=== PATIENT | male | born 1995 | race Caucasian/White ===

== ENCOUNTER 2018-03-30 12:53 | Day surgery (SDC) | payer SELFPAY ==
[2018-03-16 14:02] VITALS: BMI 29.5
[~2018-03-30 12:53] MED LIST: BACITRACIN 15 GM TUBE TOPICAL OINTMENT ONE; BUPIVACAINE HCL/PF 0.25% (2.5MG/ML) 10 ML VIAL IJ ONE; BUPIVACAINE HCL/PF 2.5 MG/ML - 30 ML VIAL IJ ONE; DESFLURANE GAS 240 ML BOTTLE IH ONE; DEXAMETHASONE SOD PHOSPHATE 4 MG/1 ML VIAL ONE; EPINEPHrine/PF 1 MG/1 ML (1:1,000) AMPULE ONE; GLYCOPYRROLATE 0.2 MG/1 ML VIAL ONE; HEPARIN NA (PORCINE) 5,000 UNITS/ML 1ML VIAL ONE; LIDOCAINE HCL 1% PRESERVATIVE FREE - 30ML VIAL ONE; LIDOCAINE HCL 2% 100 MG/5 ML DISP.SYRIN ONE; LIDOCAINE HCL 2% JELLY (5 ML/TUBE) ONE; MIDAZOLAM HCL 2 MG/2 ML SINGLE DOSE VIAL ONE; NEOSTIGMINE METHYLSULFATE 0.5 MG/ML - 10 ML MDV ONE; ONDANSETRON 4 MG/2 ML VIAL IVPB PRN; ONDANSETRON 4 MG/2 ML VIAL IVPUSH PRN; PROPOFOL 20 ML ONE; ROCURONIUM BROMIDE 50 MG/5 ML VIAL ONE; ceFAZolin SODIUM 1 GM VIAL ONE; fentaNYL CITRATE 250 MCG/5 ML VIAL ONE; oxyCODONE HCL 5 MG TABLET PO PRN
--- NOTE | 2018-03-30 12:57 | OP ---
Operative Note - Note: Operative Date: 03/30/18 Pre-Operative Diagnosis: abdominal deformity Operation: abdominoplasty with accessory breast liposuction Post-Operative Diagnosis: Same as Pre-op Surgeon: Jorge Bone Anesthesia: General Operative Report Dictated: Yes
[2018-03-30] MEDS ORDERED: LACTATED RINGERS SOLUTION 1,000 ML IV SCH (13:00)
[2018-03-30] MEDS ORDERED: oxyCODONE HCL 5 MG TABLET ONE (13:34)
[2018-03-30] MEDS: morphine CARPU-JECT 10 MG/1 ML DISP.SYRIN IVPUSH PRN ×2 (15:09→21:19)
[2018-03-30] MEDS: oxyCODONE HCL 5 MG TABLET PO PRN (22:52)
[2018-03-31] MEDS: morphine CARPU-JECT 10 MG/1 ML DISP.SYRIN IVPUSH PRN (01:00)
[2018-03-31] MEDS: oxyCODONE HCL 5 MG TABLET PO PRN ×2 (04:56→08:30)
[2018-03-31 06:43] VITALS: BP 103/63; PULSE 82; TEMP 98.2
[2018-03-31] MEDS: HEPARIN NA (PORCINE) 5,000 UNITS/ML 1ML VIAL SQ SCH ×2 (06:43→08:30)
--- NOTE | 2018-03-31 07:37 | PN ---
Progress Note (short form) - Note Progress Note: POD 1 All tissues viable No hematoma ambulating HAYLEY output thin and moderate Pain well controlled ok for discharge
[2018-03-31] MEDS ORDERED: morphine SULFATE 4 MG/ML VIAL IVPUSH PRN (07:49)
--- NOTE | 2018-03-31 07:49 | OP ---
DATE OF OPERATION: 03/30/2018 TITLE OF PROCEDURE: Abdominoplasty with liposuction to bilateral accessory breast tissue. ATTENDING SURGEON: Jorge Bone MD MANAGER RETIREMENT: CAMRON Costa ANESTHESIA: General endotracheal. The patient is counseled in the preoperative holding area of risks, benefits, and alternatives to the procedure. He understands this as well as the limitations, the limitation of the amount of liposuction able to be performed at the time of the abdominoplasty. He understands and agrees to proceed. Sequential compression stockings and HECTOR hose were applied. Patient is given 5000 units of subcutaneous heparin preoperatively. Patient is brought to the operating room and placed in supine position. All positioning aids are used. A Lopez catheter is placed. Patient is given 2 g of Ancef preoperatively. He is prepped and draped in standard surgical fashion. Timeout is called. Patient, procedure, sites, and sides are verified. At this point, incision is made at the inferior resection pattern. The blood vessels are suture ligated, and the abdominal fascia is exposed. Dissection is then carried along the abdominal fascia, ligating the perforating blood vessels as they are approached until the level of the umbilicus. The umbilicus is then circumcised and developed on a fibrofatty stalk down to the level of the abdominal wall fascia. A midline tunnel is then dissected, leaving perforated blood vessels on either side of the rectus fascia, preserving this more medial than an ordinary abdominoplasty. The dissection is then continued into the accessory breast tissue for direct defatting and releasing of the tissues. This is performed. However, the subcostal perforating blood vessels are preserved. At this point, the hemostasis then meticulously achieved. The patient is brought to a seated upright position where skin is able to be translocated which is effacing the folds of the accessory breast tissue. With the skin tailor tacked, some of the excess skin and fat is excised, skin tailor tacked, and the accessory breast tissue is then infiltrated with a total of 1 L of tumescent solution. Tumescent solution is a mixture of a liter of normal saline and 1 ampule of 1:1000 epinephrine. Next, 40 mL of 0.25% Marcaine plain is injected into the abdominal wall fascia as well as in the subcostal planes. The umbilicus is then marked and translocated in the midline with an oval-shape pattern. It is inset into an oval translocation incision with a series of interrupted, buried, deep dermal 3-0 Monocryl suture, followed by a running 4-0 nylon suture. After waiting 25 minutes for hemostatic effect of the tumescent solution, liposuction is performed in the SAFE technique with pre- and post-tunneling with a 4-mm basket-tip cannula. Once the tissues are fully released, liposuction is then performed. The lipoaspirates are as follows: 225 mL from the left accessory breast and 175 mL from the right accessory breast, and then, bilateral flank liposuction is performed to a lesser degree as was discussed with the patient preoperatively, 100 mL per side. Endpoint was smooth, even contour. There seems to be full flattening of the accessory breast tissues bilaterally. There is good distal perfusion of the abdominoplasty flap. Copious irrigation is then performed with hemostasis. The size 10 flat HAYLEY drains were brought out through the abdominal incision, and they are secured with interrupted 2-0 silk drain sutures. The abdominoplasty flap is then closed with a series of interrupted, deep, superficial fascial system 2-0 Vicryl suture. Several 2-0 Vicryl sutures are used to tack the inferior skin incision to the abdominal wall fascia to prevent superior translocation of the scar. The remainder of the closure is then performed with a series of interrupted, buried, deep dermal 3-0 Monocryl suture, followed by a running 3-0 V-Loc Monocryl suture, followed by several 5-0 nylon sutures. All tissues are pink and viable with no evidence of any vascular compromise. Dressings were applied with Steri-Strips, 4-x-4 gauze, ABD gauze, and compressive garment on each the chest and abdomen. Patient is awoken from anesthesia, having tolerated the procedure well, transferred to Recovery without complication. It should be noted the Lopez catheter is removed at the end of the procedure. Nestor [id number]
--- NOTE | 2018-04-03 10:18 | PN ---
Progress Note (short form) - Note Progress Note: 23M c/o pain pod 4 s/p abdominoplasty. Pt states that pain is pleuritic, and worsens with leaning forward, and movement as well. Pt describes h/o viral URI 6 weeks ago. Pt has had low grade fevers, generalized fatigue, shortness of breath. PE and PTX have been ruled out. Pt does not have any clinical signs or symptoms consistent with pneumonia. Consider 12 lead EKG to evaluate for pericarditis. Recommend starting ibuprofen to treat pericarditis symptoms. Discussed with Dr. Bone.
[2018-04-03] MEDS ORDERED: IBUPROFEN 400 MG TABLET (FP) PO SCH (13:15)
[2018-04-03] MEDS ORDERED: oxyCODONE HCL 5 MG TABLET PO PRN ×2 (13:20→13:21)
[2018-04-03] MEDS ORDERED: ACETAMINOPHEN 325 MG TABLET (FP) PO SCH (13:30)
== END 2018-03-31 11:30 | disposition home or self-care (01) ==
LOC: FASU 12:53 → FM/S 12:53 → FASU 03-31 11:30
PROVIDERS: ATTEND Plastic Surgery
PROC: 0J080ZZ Alteration of Abdomen Subcutaneous Tissue and Fascia, Open Approach (ICD-10-PCS; principal; 2018-03-30 08:33)
PROC: 0H0V3ZZ Alteration of Bilateral Breast, Percutaneous Approach (ICD-10-PCS; 2018-03-30 08:33)
DX: Z41.1 Encounter for cosmetic surgery (principal)
CPT/HCPCS: 94760; J1644

== ENCOUNTER 2018-04-02 11:27 | Observation (INO) | payer BC ==
[2018-04-02] MEDS ORDERED: SODIUM CHLORIDE 1,000 ML IV STA ×2 (12:07→12:52)
[2018-04-02 12:30] LABS: BASO % 0.8 % (0-2.0); EOS % 0.7 % (0-4.5); HEMATOCRIT 38.3 % (35.4-49); HEMOGLOBIN 13.1 GM/dl (11.7-16.9); LYMPH % 12.6 % (8-40); MCH 29.6 pg (25.7-33.7); MCHC 34.3 g/dl (32.0-35.9); MEAN CELL VOLUME 86.3 fl (80-96); MEAN PLT VOLUME 8.5 fl (7.5-11.1); MONO % 11.5 % (3.8-10.2); NEUT % 74.4 % (42.8-82.8); PLATELET COUNT 200 K/MM3 (134-434); RBC 4.44 M/mm3 (4.00-5.60)
--- NOTE | 2018-04-02 12:30 | PDOC ---
History of Present Illness - General Chief Complaint: Shortness of Breath Stated Complaint: SOB Time Seen by Provider: 04/02/18 11:52 History Source: Patient Exam Limitations: No Limitations - History of Present Illness Initial Comments: 04/02/18 12:25 Pt is a 23yo M with no significant PMH s/p abdominoplasty 3 days ago performed by Dr. Bone presenting to ED with complaints of R sided chest and back pain that started at 5pm yesterday with SOB. Pt states that he woke up and had sudden onset pain and SOB. Pain is worsened with deep inspiration. He went to [facility] and had workup as well as CT study for PE at around 1am today. Per the report, the study was limited and PE could not definitively be ruled out. Pt went to surgeon's office and was told to come to ED for CT and DVT study. Pt denies cough, hemoptysis, chest pain, palpitaitons, leg swelling, calf tenderness, flank pain, urinary symptoms, new abdominal pain, n/v/d. Pt has not had a bowel movement since Friday but has been passing gas. surgeon: Dr. Nieto PMH: see hpi PSH: see hpi Meds: see med rec Allergies: nkda Social: denies Past History - Past Medical History Allergies/Adverse Reactions: Allergies Allergy/AdvReac Type Severity Reaction Status Date / Time No Known Allergies Allergy Verified 03/16/18 13:51 Home Medications: Ambulatory Orders Cefadroxil 500 mg PO BID 04/02/18 Docusate Sodium [Colace] 100 mg PO DAILY 04/02/18 Oxycodone HCl/Acetaminophen [Percocet 5-325 mg Tablet] 1 - 2 tab PO Q4H Rivaroxaban [Xarelto -] 10 mg PO DAILY 04/02/18 Anemia: No Asthma: No Cancer: No Cardiac Disorders: No CVA: No COPD: No CHF: No Dementia: No Diabetes: No GI Disorders: No Disorders: No HTN: No Hypercholesterolemia: No Liver Disease: No Seizures: No Thyroid Disease: No - Surgical History Abdominal Surgery: Yes (ABDPLASTY) Appendectomy: No Cardiac Surgery: No Cholecystectomy: No Lung Surgery: No Neurologic Surgery: No Orthopedic Surgery: No - Suicide/Smoking/Psychosocial Hx Smoking History: Never smoked Have you smoked in the past 12 months: No If you are a former smoker, when did you quit?: 2016 Hx Alcohol Use: Yes (OCASIONAL) Drug/Substance Use Hx: No Substance Use Type: Alcohol, Marijuana *Physical Exam - Vital Signs Last Vital Signs Temp Pulse Resp BP Pulse Ox 98.8 F 106 H 16 91/46 L 100 04/02/18 11:28 04/02/18 11:28 04/02/18 11:28 04/02/18 11:28 04/02/18 11:28 Moderate Sedation - Procedure Monitoring Vital Signs: Procedure Monitoring Vital Signs Temperature 98.8 F 04/02/18 11:28 Pulse Rate 106 H 04/02/18 11:28 Respiratory Rate 16 04/02/18 11:28 Blood Pressure 91/46 L 04/02/18 11:28 O2 Sat by Pulse Oximetry (%) 100 04/02/18 11:28 ED Treatment Course - LABORATORY CBC & Chemistry Diagram: 04/02/18 12:15 04/02/18 12:15 Medical Decision Making - Medical Decision Making 04/02/18 19:11 Pt is a 23yo M with no significant PMH s/p abdominoplasty 3 days ago performed by Dr. Bone presenting to ED with complaints of R sided chest and back pain that started at 5pm yesterday with SOB. Pt states that he woke up and had sudden onset pain and SOB. Pain is worsened with deep inspiration. He went to [facility] and had workup as well as CT study for PE at around 1am today. Per the report, the study was limited and PE could not definitively be ruled out. Pt went to surgeon's office and was told to come to ED for CT and DVT study. Pt denies cough, hemoptysis, chest pain, palpitaitons, leg swelling, calf tenderness, flank pain, urinary symptoms, new abdominal pain, n/v/d. Pt has not had a bowel movement since Friday but has been passing gas. Vitals: tachycardia (106), bp 91/46, RR 16 100%RA PE: lungs clear, normal heart sounds. abdominal binder in place, surgical scars healing well, no signs of infection. abdominal tenderness, no CVA tenderness. no chest wall tenderness, no pedal edema or calf tenderess or swelling. ddx includes but not limited to: surgical pain, atelectasis, PE, pna although pt is on xarelto, pt is tachycardic, having pleuritic chest pain, recent surgery. Wells score 3pts -6pts Spoke to radiologist, recommended that pt get fluids before radiation again. ( had CT with contrast less than 12h ago). -cbc, cmp (forgot to order trop), coags -ekg -labs wnl orderd CT -IV fluids, percocet. -Dilaudid. repeat vitals: Selected Entries 04/02/18 14:03 Temperature 99.1 F Pulse Rate [ 97 H Left Radial] Blood Pressure 105/61 [Right Arm] O2 Sat by Pulse 98 Oximetry (%) CT limited study due to pt body habitus and inability to lift arms over head. no central embolus but could not visualize periphery. Cannot rule out pe. No pna. R base atelectasis. EKG; NSR, S1Q3T3? spoke to Dr. Nieto agreed to admission to r/o pe. Spoke to hospitalist, recommended 15mg xarelto however pt took 10mg today. Will admit. *DC/Admit/Observation/Transfer Diagnosis at time of Disposition: Chest pain Qualifiers: Chest pain type: chest pain on breathing Qualified Code(s): R07.1 - Chest pain on breathing - Discharge Dispostion Condition at time of disposition: Good Decision to Admit order: Yes - Referrals - Patient Instructions - Post Discharge Activity
[2018-04-02 12:36] LABS: ACTIVATED PTT 28.5 SECONDS (25.2-36.5)
[2018-04-02 12:38] LABS: ALBUMIN 3.3 g/dl (3.4-5.0); ALK PHOS 39 U/L (45-117); ANION GAP 4 MMOL/L (8-16); BILIRUBIN,TOTAL 2.5 mg/dl (0.2-1); BLOOD UREA NITROGEN 11 mg/dl (7-18); CALCIUM 8.1 mg/dl (8.5-10); CHLORIDE 102 mmol/L (98-107); CO2 27 mmol/L (21-32); CREATININE 0.7 mg/dl (0.55-1.3); GLUCOSE,RANDOM 101 mg/dl (74-106); SGOT/AST 22 U/L (15-37); SGPT/ALT 20 U/L (13-61); SODIUM 133 mmol/L (136-145)
[2018-04-02 12:40] LABS: INR 2.07 (0.82-1.09); PROTHROMBIN TIME (PATIENT) 22.9 SEC (10.2-13.0)
[2018-04-02] MEDS ORDERED: HYDROmorphone HCL CARPU-JECT 1 MG/1 ML DISP.SYRIN ONE (13:15)
[2018-04-02] MEDS ORDERED: morphine CARPU-JECT 2 MG/1 ML DISP.SYRIN IVPUSH ONE (13:47)
[2018-04-02] MEDS ORDERED: ONDANSETRON 4 MG/2 ML VIAL IVPB ONE (14:02)
[2018-04-02] MEDS ORDERED: ONDANSETRON 4 MG/2 ML VIAL ONE (14:03)
[2018-04-02] MEDS ORDERED: HYDROmorphone HCL CARPU-JECT 1 MG/1 ML DISP.SYRIN IVPUSH ONE (14:22)
[2018-04-02 17:10] VITALS: BMI 31.2
[2018-04-02] MEDS ORDERED: traMADol HCL 50 MG TABLET PO ONE (18:40)
--- NOTE | 2018-04-02 20:41 | HP ---
CHIEF COMPLAINT: SOB PCP: Dr. Mina Valiente HISTORY OF PRESENT ILLNESS: This is a 23 y/o young man with no significant medical history who is s/p abdominoplasty 3 days ago. Who presents to the ED with SOB and right sided chest pain x started 5pm yesterday.Patient reports increased pain to R- chest and back on deep inspiration. Patient went to [facility] today for same had a CTA- study was limited and a PE could not be ruled out. He went to see Dr. Bone in the office and was advised to come here to r/o PE and DVT. Patient denies fever, chills, dizziness, palpitations, N/V, diarrhea, dysuria. ER course was notable for: (1) CTA- limited study, no large central emboli, inadequate visualization of peripheral pulmonary arteries for emboli. Infiltrate/Atelectasis Right Base. (2) T Max 100.4, P- 106 (3) Recent Travel: None PAST MEDICAL HISTORY: see HPI PAST SURGICAL HISTORY: s/p abdominoplasty Social History: Smoking: None Alcohol: Occasional Drugs: Marijuana Lives with family, employed- Real Estate Family History: Maternal Grandmother: Breast Ca, Lung Ca Allergies No Known Allergies Allergy (Verified 03/16/18 13:51) HOME MEDICATIONS: Home Medications Medication Instructions Recorded Cefadroxil 500 mg PO BID 04/02/18 Docusate Sodium [Colace] 100 mg PO DAILY 04/02/18 Oxycodone HCl/Acetaminophen 1 - 2 tab PO Q4H 04/02/18 [Percocet 5-325 mg Tablet] Rivaroxaban [Xarelto -] 10 mg PO DAILY 04/02/18 REVIEW OF SYSTEMS CONSTITUTIONAL: Absent: fever, chills, diaphoresis, generalized weakness, malaise, loss of appetite, weight change HEENT: Absent: rhinorrhea, nasal congestion, throat pain, throat swelling, difficulty swallowing, mouth swelling, ear pain, eye pain, visual changes CARDIOVASCULAR: chest pain Absent:, syncope, palpitations, irregular heart rate, lightheadedness, peripheral edema RESPIRATORY: cough, shortness of breath Absent: dyspnea with exertion, orthopnea, wheezing, stridor, hemoptysis GASTROINTESTINAL: constipation, Absent: abdominal pain, abdominal distension, nausea, vomiting, diarrhea, melena , hematochezia GENITOURINARY: Absent: dysuria, frequency, urgency, hesitancy, hematuria, flank pain, genital pain MUSCULOSKELETAL: back pain Absent: myalgia, arthralgia, joint swelling, neck pain SKIN: Absent: rash, itching, pallor HEMATOLOGIC/IMMUNOLOGIC: Absent: easy bleeding, easy bruising, lymphadenopathy, frequent infections ENDOCRINE: Absent: unexplained weight gain, unexplained weight loss, heat intolerance, cold intolerance NEUROLOGIC: Absent: headache, focal weakness or paresthesias, dizziness, unsteady gait, seizure, mental status changes, bladder or bowel incontinence PSYCHIATRIC: Absent: anxiety, depression, suicidal or homicidal ideation, hallucinations. PHYSICAL EXAMINATION Vital Signs - 24 hr 04/02/18 04/02/18 04/02/18 11:28 14:03 14:11 Temperature 98.8 F 99.1 F 97.4 F L Pulse Rate 106 H 91 H Pulse Rate [ 97 H Left Radial] Respiratory 16 18 Rate Blood Pressure 91/46 L 117/60 Blood Pressure 105/61 [Right Arm] O2 Sat by Pulse 100 98 99 Oximetry (%) 04/02/18 04/02/18 16:28 18:45 Temperature 98 F 98.4 F Pulse Rate 91 H Pulse Rate [ 86 Left Radial] Respiratory 18 19 Rate Blood Pressure 105/55 L Blood Pressure 113/61 [Right Arm] O2 Sat by Pulse 96 98 Oximetry (%) GENERAL: Awake, alert, and fully oriented, in moderate distress. HEAD: Normal with no signs of trauma. EYES: Pupils equal, round and reactive to light, extraocular movements intact, sclera anicteric, conjunctiva clear. No lid lag. EARS, NOSE, THROAT: Ears normal, nares patent, oropharynx clear without exudates. Dry mucous membranes. NECK: Normal range of motion, supple without lymphadenopathy, JVD, or masses. LUNGS: Breath sounds diminished to right base. No wheezes, and no crackles. No accessory muscle use. HEART: Regular rate and rhythm, normal S1 and S2 without murmur, rub or gallop. ABDOMEN: Slight tenderness to surgical site intact with steri, abdominal binder , drain with sanguineous drainage. soft, not distended, hypoactive bowel sounds , no guarding, no rebound, no masses. No hepatomegaly or splenomegaly. MUSCULOSKELETAL: Normal range of motion at all joints. No bony deformities or tenderness. No CVA tenderness. UPPER EXTREMITIES: 2+ pulses, warm, well-perfused. No cyanosis. No clubbing. No peripheral edema. LOWER EXTREMITIES: 2+ pulses, warm, well-perfused. No calf tenderness. No peripheral edema. NEUROLOGICAL: Cranial nerves II-XII intact. Normal speech. Gait not observed. PSYCHIATRIC: Cooperative. Good eye contact. Appropriate mood and affect. SKIN: Warm, dry, normal turgor, no rashes or lesions noted, normal capillary refill. Laboratory Results - last 24 hr 04/02/18 04/02/18 04/02/18 12:15 12:15 12:15 WBC 8.0 RBC 4.44 Hgb 13.1 Hct 38.3 MCV 86.3 MCH 29.6 MCHC 34.3 RDW 13.0 Plt Count 200 MPV 8.5 Absolute Neuts (auto) 5.9 Neutrophils % 74.4 Lymphocytes % 12.6 Monocytes % 11.5 H Eosinophils % 0.7 Basophils % 0.8 PT with INR 22.9 H INR 2.07 H PTT (Actin FS) 28.5 Sodium 133 L Potassium 4.0 Chloride 102 Carbon Dioxide 27 Anion Gap 4 L BUN 11 Creatinine 0.7 Creat Clearance w eGFR > 60 Random Glucose 101 Calcium 8.1 L Total Bilirubin 2.5 H AST 22 ALT 20 Alkaline Phosphatase 39 L Total Protein 6.0 L Albumin 3.3 L Imaging: CTA- severely limited study. No large central emboli seen. Inadequate visualization of the peripheral pulmonary arteries for emboli. Infiltrate/ atelectasis right base. Hepatosplenomegaly ASSESSMENT/PLAN: This is a 23 y/o young man with no significant medical history s/p abdominoplasty. Placed in Tele Observation for Atypical Chest Pain, SOB, Pneumonia for further evaluation of their emergent condition. Plan: 1. Cardiovascular Atypical Chest Pain Likely secondary to PNA vs PE vs ACS Continue cardiac monitoring Serial Enzymes EKG- NSR no ST or TWI CTA- see above Consider Cardiology consult if condition worsens 2. Pulmonary SOB r/o PE Pneumonia Wells Score 3-6 CTA- see above VQ Scan r/o PE Continue Xarelto O2 Appreciate Pulmonology consult Blood Cultures, Rapid Flu, Lactic Acid- ordered UA, Urine Culture-pending Will treat empirically for CAP Ceftriaxone, Azithromycin T Max 100.4 Monitor CBC, BMP Monitor vitals 3. GI s/p Abdominoplasty Wound/drain checks Percocet prn f/u with Surgeon outpatient FEN NS@75ml/hr Replete lytes prn Regular Diet DVT ppx OOB Continue Xarelto Code Status: Full Code Dispo: Observation Problem List - Problem (1) SOB (shortness of breath) Code(s): R06.02 - SHORTNESS OF BREATH Visit type - Emergency Visit Emergency Visit: Yes ED Registration Date: 04/02/18 Care time: The patient presented to the Emergency Department on the above date and was hospitalized for further evaluation of their emergent condition. - New Patient This patient is new to me today: Yes Date on this admission: 04/02/18 - Critical Care Critical Care patient: No
[2018-04-02] MEDS ORDERED: CEFTRIAXONE 1 G/50 ML PREMIX 50 ML IVPB ONE (21:06)
[2018-04-02] MEDS ORDERED: AZITHROMYCIN IVPB 500 MG/250 ML BAG IVPB ONE (21:07)
[2018-04-02] MEDS: ACETAMINOPHEN 325 MG TABLET (FP) PO PRN (21:13)
[2018-04-02] MEDS: DOCUSATE SODIUM 100 MG CAPSULE (FP) PO SCH (22:33)
[2018-04-02] MEDS: SODIUM CHLORIDE 1,000 ML IV SCH (22:33)
[2018-04-02] MEDS: oxyCODONE HCL 5 MG TABLET PO PRN (22:34)
[2018-04-02 23:01] LABS: PH,URINE 5.5 (4.5-8); URINE APPEARANCE Clear; URINE BILIRUBIN Negative (NEGATIVE); URINE COLOR Yellow; URINE GLUCOSE (UA) Negative (NEGATIVE); URINE KETONE Negative (NEGATIVE); URINE LEUK ESTERASE Negative (NEGATIVE); URINE NITRITE Negative (NEGATIVE); URINE PROTEIN Negative (NEGATIVE); URINE UROBILINOGEN 0.2 (0.2-1.0)
[2018-04-03] MEDS: ACETAMINOPHEN 325 MG TABLET (FP) PO PRN ×2 (02:20→09:50)
[2018-04-03] MEDS ORDERED: HYDROmorphone HCL CARPU-JECT 1 MG/1 ML DISP.SYRIN IVPUSH ONE (03:07)
[2018-04-03 07:30] LABS: BASO % 0.3 % (0-2.0); EOS % 2.6 % (0-4.5); HEMATOCRIT 35.3 % (35.4-49); LYMPH % 26.1 % (8-40); MCH 29.5 pg (25.7-33.7); MEAN CELL VOLUME 86.9 fl (80-96); MEAN PLT VOLUME 8.4 fl (7.5-11.1); MONO % 13.5 % (3.8-10.2); NEUT % 57.5 % (42.8-82.8); PLATELET COUNT 191 K/MM3 (134-434); RBC 4.06 M/mm3 (4.00-5.60); RDW 13.1 % (11.9-15.9); WHITE BLOOD COUNT 6.7 K/mm3 (4.0-10.8)
--- NOTE | 2018-04-03 08:17 | PN ---
Physical Exam: SUBJECTIVE: Patient seen and examined. Briefly, this is a 23-year-old male with no significant PMH POD # 4 s/p abdominoplasty (with Dr. Bone) who presented to the ED yesterday with right-sided chest and back pain with associated shortness of breath. Pain is pleuritic. He initially presented to [facility] and had a CTA that was limited/not definitive. CTA was repeated yesterday and again reported as limited, but negative for central PE. There is infiltrate/atelectasis at the right base. The patient was started on Ceftriaxone /Azithromycin for PNA and admitted. Today, he describes uncontrolled abdominal pain limiting his ability to ambulate. He denies fevers/chills and SOB. Vital sig OBJECTIVE: Vital Signs Period Temp Pulse Resp BP Sys/Johnson Pulse Ox Last 24 Hr 97.4 F-100.4 F 70-106 16-19 91-117/46-73 96-100 GENERAL: The patient is awake, alert, and fully oriented, in no acute distress. HEAD: Normal with no signs of trauma. EYES: PERRL, extraocular movements intact, sclera anicteric, conjunctiva clear. No ptosis. ENT: Ears normal, nares patent, oropharynx clear without exudates, moist mucous membranes. NECK: Trachea midline, full range of motion, supple. LUNGS: Breath sounds equal, clear to auscultation bilaterally, no wheezes, no crackles, no accessory muscle use. HEART: Regular rate and rhythm, S1, S2 without murmur, rub or gallop. ABDOMEN: Abdominal binder in place. EXTREMITIES: 2+ pulses, warm, well-perfused, no edema. NEUROLOGICAL: Cranial nerves II through XII grossly intact. Normal speech, gait not observed. PSYCH: Normal mood, normal affect. SKIN: Warm, dry, normal turgor, no rashes or lesions noted Laboratory Results - last 24 hr 04/02/18 04/02/18 04/02/18 12:15 12:15 12:15 WBC 8.0 RBC 4.44 Hgb 13.1 Hct 38.3 MCV 86.3 MCH 29.6 MCHC 34.3 RDW 13.0 Plt Count 200 MPV 8.5 Absolute Neuts (auto) 5.9 Neutrophils % 74.4 Lymphocytes % 12.6 Monocytes % 11.5 H Eosinophils % 0.7 Basophils % 0.8 PT with INR 22.9 H INR 2.07 H PTT (Actin FS) 28.5 Sodium 133 L Potassium 4.0 Chloride 102 Carbon Dioxide 27 Anion Gap 4 L BUN 11 Creatinine 0.7 Creat Clearance w eGFR > 60 Random Glucose 101 Lactic Acid Calcium 8.1 L Total Bilirubin 2.5 H AST 22 ALT 20 Alkaline Phosphatase 39 L Creatine Kinase Troponin I Total Protein 6.0 L Albumin 3.3 L Urine Color Urine Appearance Urine pH Ur Specific [place] Urine Protein Urine Glucose (UA) Urine Ketones Urine Blood Urine Nitrite Urine Bilirubin Urine Urobilinogen Ur Leukocyte Esterase 04/02/18 04/02/18 04/02/18 12:15 22:30 22:30 WBC RBC Hgb Hct MCV MCH MCHC RDW Plt Count MPV Absolute Neuts (auto) Neutrophils % Lymphocytes % Monocytes % Eosinophils % Basophils % PT with INR INR PTT (Actin FS) Sodium Potassium Chloride Carbon Dioxide Anion Gap BUN Creatinine Creat Clearance w eGFR Random Glucose Lactic Acid 1.2 Calcium Total Bilirubin AST ALT Alkaline Phosphatase Creatine Kinase Troponin I < 0.03 Total Protein Albumin Urine Color Yellow Urine Appearance Clear Urine pH 5.5 Ur Specific [place] 1.025 Urine Protein Negative Urine Glucose (UA) Negative Urine Ketones Negative Urine Blood Negative Urine Nitrite Negative Urine Bilirubin Negative Urine Urobilinogen 0.2 Ur Leukocyte Esterase Negative 04/02/18 04/02/18 04/03/18 22:30 22:30 04:15 WBC RBC Hgb Hct MCV MCH MCHC RDW Plt Count MPV Absolute Neuts (auto) Neutrophils % Lymphocytes % Monocytes % Eosinophils % Basophils % PT with INR INR PTT (Actin FS) Sodium Potassium Chloride Carbon Dioxide Anion Gap BUN Creatinine Creat Clearance w eGFR Random Glucose Lactic Acid Calcium Total Bilirubin AST ALT Alkaline Phosphatase Creatine Kinase 75 70 Troponin I < 0.03 < 0.02 Total Protein Albumin Urine Color Urine Appearance Urine pH Ur Specific [place] Urine Protein Urine Glucose (UA) Urine Ketones Urine Blood Urine Nitrite Urine Bilirubin Urine Urobilinogen Ur Leukocyte Esterase 04/03/18 07:00 WBC 6.7 RBC 4.06 Hgb 12.0 Hct 35.3 L MCV 86.9 MCH 29.5 MCHC 34.0 RDW 13.1 Plt Count 191 MPV 8.4 Absolute Neuts (auto) 3.9 Neutrophils % 57.5 D Lymphocytes % 26.1 D Monocytes % 13.5 H Eosinophils % 2.6 D Basophils % 0.3 PT with INR INR PTT (Actin FS) Sodium Potassium Chloride Carbon Dioxide Anion Gap BUN Creatinine Creat Clearance w eGFR Random Glucose Lactic Acid Calcium Total Bilirubin AST ALT Alkaline Phosphatase Creatine Kinase Troponin I Total Protein Albumin Urine Color Urine Appearance Urine pH Ur Specific [place] Urine Protein Urine Glucose (UA) Urine Ketones Urine Blood Urine Nitrite Urine Bilirubin Urine Urobilinogen Ur Leukocyte Esterase Active Medications Generic Name Dose Route Start Last Admin Trade Name Lyn PRN Reason Stop Dose Admin Acetaminophen 650 mg 04/02/18 20:54 04/03/18 02:20 Tylenol - PO 650 mg Q6H PRN Administration PAIN OR FEVER Docusate Sodium 100 mg 04/02/18 22:00 04/02/18 22:33 Colace - PO 100 mg BID SUKH Administration Sodium Chloride 1,000 mls @ 75 mls/hr 04/02/18 21:00 04/02/18 22:33 Normal Saline - IV 75 mls/hr ASDIR SUKH Administration Azithromycin 500 mg in 250 mls @ 250 mls/hr 04/03/18 22:00 Zithromax 500mg Ivpb (Pre-Docked) IVPB DAILY@2200 [facility] Ceftriaxone Sodium 50 mls @ 100 mls/hr 04/03/18 22:00 Ceftriaxone 1 Gm-D5w Bag IVPB DAILY@2200 [facility] Protocol Oxycodone HCl 5 mg 04/02/18 23:00 04/02/18 22:34 Roxicodone - PO 5 mg Q6H PRN Administration PAIN LEVEL 7 - 10 Rivaroxaban 10 mg 04/03/18 10:00 Xarelto - PO DAILY [facility] ASSESSMENT/PLAN: 23-year-old male POD #4 s/p abdominoplasty with chest pain and SOB. 1. Chest pain, SOB -Normal v/s, no RF other than surgery, low suspicion for PE -Grossly neg CTA x 2 -Likely atelectasis s/p surg, however will continue tx for CAP for now (Ceft/ Azith, no MDR RFs) -V/Q scan unlikely to be of any benefit without clear CXR; will cancel for now and verify with pulm -D-dimer is elev at 990; expected with post-operative state -Obtain duplex LE now -Continue IS 2. Abdominal pain -Surgery to consult anesthesia for further management -Bowel regimen (continue ducosate, add Miralax) DISPO: Continue outpatient management. Addendum 2:50pm: Duplex reviewed; no evidence of DVT. Pulm eval pending.
[2018-04-03 08:21] LABS: ANION GAP 7 MMOL/L (8-16); BLOOD UREA NITROGEN 9 mg/dl (7-18); CALCIUM 8.6 mg/dl (8.5-10); CHLORIDE 102 mmol/L (98-107); CO2 27 mmol/L (21-32); CREATININE 0.6 mg/dl (0.55-1.3); GLUCOSE,RANDOM 92 mg/dl (74-106); MAGNESIUM 1.8 mg/dL (1.8-2.4); PHOSPHOROUS 4.3 mg/dl (2.5-4.9); POTASSIUM 4.3 mmol/L (3.5-5.1); SODIUM 136 mmol/L (136-145)
[2018-04-03] MEDS: oxyCODONE HCL 5 MG TABLET PO PRN ×3 (09:52→20:05)
[2018-04-03] MEDS: DOCUSATE SODIUM 100 MG CAPSULE (FP) PO SCH ×2 (09:52→21:14)
[2018-04-03] MEDS: RIVAROXABAN 10 MG TABLET PO SCH (09:53)
[2018-04-03] MEDS: POLYETHYLENE GLYCOL 3350 119 GM BTL PO SCH ×3 (09:54→21:15)
--- NOTE | 2018-04-03 13:14 | EKG ---
Test Reason : Blood Pressure : / mmHG Vent. Rate : 091 BPM Atrial Rate : 091 BPM P-R Int : 158 ms QRS Dur : 086 ms QT Int : 352 ms P-R-T Axes : 042 013 -09 degrees QTc Int : 432 ms POOR DATA QUALITY, INTERPRETATION MAY BE ADVERSELY AFFECTED NORMAL SINUS RHYTHM NORMAL ECG NO PREVIOUS ECGS AVAILABLE Confirmed by CESAR DILLARD, MARÍA ELENA ([id number]) on 04/03/2018 1:13:41 PM Referred By: LONG LEONE Confirmed By:MARÍA ELENA GUERRERO MD
[2018-04-03] MEDS ORDERED: oxyCODONE HCL 5 MG TABLET PO PRN (13:48)
[2018-04-03] MEDS: ACETAMINOPHEN 325 MG TABLET (FP) PO SCH ×2 (14:46→21:13)
--- NOTE | 2018-04-03 16:44 | CON.PULM ---
Consult Consult Specialty:: PULMONARY Referred by:: LUISITO Reese Reason for Consultation:: r/o PE - History of Present Illness Chief Complaint: shortness of breath History of Present Illness: 23yo male without significant past medical history who had a abdominoplasty on who was in [facility] until 1 day prior to admission when he had suddenly felt short of breath and right chest/back pain. No cough or wheezing. No palpitations. No nausea, vomiting or headache. He went to [facility] where they performed a CTA chest which was not conclusive for a PE. He reports compliance with his xarelto prophylaxis when discharged. He was taking his pain medications and his symptoms started shortly after waking up from a nap. No fevers, chills or sweats. No personal or family history of clots. He is a nonsmoker. Denies any leg pain or swelling aside from now after receiving IVF. Doppler studies negative for DVT. Repeat CTA chest here also inconclusive for PE but no central PE seen. He has been ambulating without oxygen, saturating well. He was started on antibiotics for possible RLL pneumonia seen on CT chest. - History Source History Provided By: Patient, Medical Record Limitations to Obtaining History: No Limitations - Alcohol/Substance Use Hx Alcohol Use: Yes (OCASIONAL) - Smoking History Smoking history: Never smoked Have you smoked in the past 12 months: No If you are a former smoker, when did you quit?: 2016 Home Medications - Allergies Allergies/Adverse Reactions: Allergies Allergy/AdvReac Type Severity Reaction Status Date / Time No Known Allergies Allergy Verified 03/16/18 13:51 - Home Medications Home Medications: Ambulatory Orders Cefadroxil 500 mg PO BID 04/02/18 Docusate Sodium [Colace] 100 mg PO DAILY 04/02/18 Oxycodone HCl/Acetaminophen [Percocet 5-325 mg Tablet] 1 - 2 tab PO Q4H Rivaroxaban [Xarelto -] 10 mg PO DAILY 04/02/18 Review of Systems - Review of Systems Constitutional: reports: Weakness. denies: Chills, Fever Eyes: denies: Recent Change in Vision HENT: denies: Nasal Congestion, Throat Pain Neck: denies: Stiffness, Tenderness Cardiovascular: reports: Chest Pain, Edema, Shortness of Breath. denies: Palpitations Respiratory: reports: SOB on Exertion. denies: Cough, Hemoptysis, Wheezing Gastrointestinal: reports: Abdominal Pain. denies: Nausea, Vomiting Genitourinary: denies: Dysuria, Hematuria Musculoskeletal: denies: Extremity Pain Neurological: denies: Dizziness, Headache Endocrine: denies: Unexplained Weight Loss Physical Exam Vital Sings: Vital Signs Temperature 98.6 F 04/03/18 14:04 Pulse Rate 84 04/03/18 14:04 Respiratory Rate 16 04/03/18 14:04 Blood Pressure 97/54 L 04/03/18 14:04 O2 Sat by Pulse Oximetry (%) 100 04/03/18 14:04 Constitutional: Yes: Calm Eyes: Yes: Conjunctiva Clear, EOM Intact HENT: Yes: Atraumatic, Normocephalic Neck: Yes: Supple, Trachea Midline Cardiovascular: Yes: Regular Rate and Rhythm Respiratory: Yes: Diminished (decreased breath sounds at the bases) ...Clubbing: No Gastrointestinal: Yes: Normal Bowel Sounds, Soft. No: Tenderness Edema: Yes (trace) Neurological: Yes: Alert, Oriented Psychiatric: Yes: Alert, Oriented Labs: CBC, BMP 04/03/18 07:00 04/03/18 07:00 Imaging - Results Cat Scan: Report Reviewed, Image Reviewed (no central pulmonary emboli, RLL atelectasis vs infiltrate) Problem List - Problems (1) Pneumonia Code(s): J18.9 - PNEUMONIA, UNSPECIFIED ORGANISM (2) Atelectasis Code(s): J98.11 - ATELECTASIS Assessment/Plan s/p Abdominoplasty POD #4 RLL Pneumonia vs Atelectasis Less likely PE - pt saturating well on room air, not tachycardic, no DVTs seen on dopplers, has been taking DVT prophylaxis post op and has been improving clinically without full anticoagulation so clinically less likely VTE - pt with recent surgery and with possible pneumonia so an elevated d-dimer would be nonspecific - fever may be from atelectasis especially without leukocytosis, but also possible that pt had a silent aspiration event after taking a nap from opiate use causing these symptoms - would empirically treat for pneumonia with antibiotic course, can change to PO and complete 7 day course total - continue incentive spirometry, early ambulation Thank you for this consult Rey Baker MD
--- NOTE | 2018-04-03 18:52 | PN ---
Progress Note (short form) - Note Progress Note: Patient readmitted for pain on POD 3. Work-up for PE is negative. He has been on prophylactic anticoagulation since surgery, and is ambulating. Room air saturation is normal and not tachycardic. CT shows possible RLL infiltrate which is most likely atelectasis, but we are treating him for pneumonia empirically. Clinically he is improving with better pain control. Appreciate pulmonary consult. Plan is for discharge tomorrow on 800mg motrin TID in addition to percocet and miralax. Dressings to stay on and dry until follow up with me on Friday.
[2018-04-03] MEDS: SODIUM CHLORIDE 1,000 ML IV SCH (21:14)
[2018-04-03] MEDS ORDERED: CEFTRIAXONE 1 G/50 ML PREMIX 50 ML IVPB SCH (22:00)
[2018-04-03] MEDS ORDERED: AZITHROMYCIN IVPB 500 MG/250 ML BAG IVPB SCH (22:00)
[2018-04-04] MEDS: oxyCODONE HCL 5 MG TABLET PO PRN ×2 (00:24→09:43)
[2018-04-04 06:03] VITALS: TEMP 98.7
[2018-04-04 06:04] VITALS: BP 100/54; PULSE 80
[2018-04-04] MEDS: ACETAMINOPHEN 325 MG TABLET (FP) PO SCH (06:16)
[2018-04-04 08:28] LABS: BASO % 0.3 % (0-2.0); EOS % 3.5 % (0-4.5); HEMATOCRIT 35.7 % (35.4-49); HEMOGLOBIN 11.8 GM/dl (11.7-16.9); LYMPH % 18.1 % (8-40); MCH 29.1 pg (25.7-33.7); MCHC 33.2 g/dl (32.0-35.9); MEAN CELL VOLUME 87.6 fl (80-96); MEAN PLT VOLUME 8.3 fl (7.5-11.1); MONO % 11.2 % (3.8-10.2); NEUT % 66.9 % (42.8-82.8); PLATELET COUNT 208 K/MM3 (134-434); RBC 4.07 M/mm3 (4.00-5.60); RDW 13.1 % (11.9-15.9)
[2018-04-04 08:35] LABS: ALBUMIN 2.9 g/dl (3.4-5.0); ALK PHOS 34 U/L (45-117); ANION GAP 8 MMOL/L (8-16); BILIRUBIN,TOTAL 1.6 mg/dl (0.2-1); BLOOD UREA NITROGEN 9 mg/dl (7-18); CALCIUM 8.5 mg/dl (8.5-10); CHLORIDE 100 mmol/L (98-107); CO2 28 mmol/L (21-32); CREATININE 0.8 mg/dl (0.55-1.3); GLUCOSE,RANDOM 92 mg/dl (74-106); POTASSIUM 4.1 mmol/L (3.5-5.1); SGOT/AST 19 U/L (15-37); SGPT/ALT 24 U/L (13-61); SODIUM 136 mmol/L (136-145); TOT PROT 5.6 g/dl (6.4-8.2)
--- NOTE | 2018-04-04 09:10 | PN ---
Progress Note, Physician History of Present Illness: pulmonary alert,feeling better,-sob,-cough,+ r sided cp increased with movement. o2 sat 98 % ra - Current Medication List Current Medications: Active Medications Acetaminophen (Tylenol -) 650 mg PO Q8H [facility] Last Admin: 04/04/18 06:16 Dose: 650 mg Docusate Sodium (Colace -) 100 mg PO BID [facility] Last Admin: 04/03/18 21:14 Dose: 100 mg Sodium Chloride (Normal Saline -) 1,000 mls @ 75 mls/hr IV ASDIR [facility] Last Admin: 04/03/18 21:14 Dose: Not Given Azithromycin (Zithromax 500mg Ivpb (Pre-Docked)) 500 mg in 250 mls @ 250 mls/ hr IVPB DAILY@2200 [facility] Last Admin: 04/03/18 21:15 Dose: 250 mls/hr Ceftriaxone Sodium (Ceftriaxone 1 Gm-D5w Bag) 50 mls @ 100 mls/hr IVPB DAILY@ 2200 [facility]; Protocol Last Admin: 04/03/18 21:14 Dose: 100 mls/hr Oxycodone HCl (Roxicodone -) 5 mg PO Q3H PRN PRN Reason: PAIN LEVEL 1-5 Oxycodone HCl (Roxicodone -) 10 mg PO Q4H PRN PRN Reason: PAIN LEVEL 6-10 Last Admin: 04/04/18 00:24 Dose: 10 mg Polyethylene Glycol (Miralax (For Daily Use) -) 17 gm PO BID [facility] Last Admin: 04/03/18 21:15 Dose: Not Given Rivaroxaban (Xarelto -) 10 mg PO DAILY [facility] Last Admin: 04/03/18 09:53 Dose: 10 mg - Objective Vital Signs: Vital Signs Temperature 98.7 F 04/04/18 06:00 Pulse Rate 80 04/04/18 06:00 Respiratory Rate 18 04/04/18 06:00 Blood Pressure 100/54 L 04/04/18 06:00 O2 Sat by Pulse Oximetry (%) 98 04/04/18 06:04 Constitutional: Yes: Well Nourished, Calm Eyes: Yes: WNL HENT: Yes: WNL Neck: Yes: WNL Cardiovascular: Yes: Regular Rate and Rhythm, S1, S2 Respiratory: Yes: CTA Bilaterally Gastrointestinal: Yes: Normal Bowel Sounds, Soft Extremities: Yes: WNL Edema: No Labs: CBC, BMP 04/04/18 07:05 04/04/18 07:05 INR, PTT INR 2.07 (0.82-1.09) H 04/02/18 12:15 Assessment/Plan Problem List - Problems (1) Pneumonia Code(s): J18.9 - PNEUMONIA, UNSPECIFIED ORGANISM (2) Atelectasis Code(s): J98.11 - ATELECTASIS Assessment/Plan s/p Abdominoplasty POD #4 RLL Pneumonia vs Atelectasis Less likely PE - pt saturating well on room air, not tachycardic, no DVTs seen on dopplers, has been taking DVT prophylaxis post op and has been improving clinically without full anticoagulation so clinically less likely VTE - pt with recent surgery and with possible pneumonia so an elevated d-dimer would be nonspecific - abx - incentive spirometer - analgesics DR AVILA
[2018-04-04] MEDS: RIVAROXABAN 10 MG TABLET PO SCH (09:42)
[2018-04-04] MEDS: DOCUSATE SODIUM 100 MG CAPSULE (FP) PO SCH (09:42)
[2018-04-04] MEDS: POLYETHYLENE GLYCOL 3350 119 GM BTL PO SCH (09:42)
--- NOTE | 2018-04-04 09:47 | DS ---
Physical Exam: SUBJECTIVE: Patient seen and examined, reports abdominal pain controlled with pain meds,chest pain resolved, denies sob, palpitations, N/V/D or urinary symptoms. OBJECTIVE: Vital Signs Period Temp Pulse Resp BP Sys/Johnson Pulse Ox Last 24 Hr 98.4 F-99.0 F 80-91 16-18 94-102/52-66 96-100 PHYSICAL EXAM GENERAL: The patient is awake, alert, and fully oriented, in no acute distress. HEAD: Normal with no signs of trauma. EYES: PERRL, extraocular movements intact, sclera anicteric, conjunctiva clear. ENT: Ears normal, nares patent, oropharynx clear without exudates, moist mucous membranes. NECK: Trachea midline, full range of motion, supple. LUNGS: Breath sounds equal, clear to auscultation bilaterally, no wheezes, no crackles, no accessory muscle use. HEART: Regular rate and rhythm, S1, S2 without murmur, rub or gallop. ABDOMEN: Soft, non-distended, normoactive bowel sounds, no guarding, no rebound , no hepatosplenomegaly, no masses, dsg and drain in place. EXTREMITIES: 2+ pulses, warm, well-perfused,non- pitting edema. NEUROLOGICAL: Cranial nerves II through XII grossly intact. Normal speech, gait not observed. PSYCH: Normal mood, normal affect. SKIN: Warm, dry, normal turgor, no rashes or lesions noted. LABS Laboratory Results - last 24 hr 04/03/18 04/04/18 04/04/18 11:05 07:05 07:05 WBC 6.0 RBC 4.07 Hgb 11.8 Hct 35.7 MCV 87.6 MCH 29.1 MCHC 33.2 RDW 13.1 Plt Count 208 MPV 8.3 Absolute Neuts (auto) 4.0 Neutrophils % 66.9 Lymphocytes % 18.1 D Monocytes % 11.2 H Eosinophils % 3.5 Basophils % 0.3 D-Dimer 990 H Sodium 136 Potassium 4.1 Chloride 100 Carbon Dioxide 28 Anion Gap 8 BUN 9 Creatinine 0.8 Creat Clearance w eGFR > 60 Random Glucose 92 Calcium 8.5 Total Bilirubin 1.6 H AST 19 ALT 24 Alkaline Phosphatase 34 L Total Protein 5.6 L Albumin 2.9 L HOSPITAL COURSE: Date of Admission:04/02/18 Date of Discharge: 04/04/18 This is a 23-year-old male with no significant, who underwent abdominoplasty with Dr. Bone on 03/30/18. Pt presented to ED post-op day #4 with right- sided chest and back pain with associated shortness of breath. Pt initially presented to [facility] and had a CTA that was limited/not definitive. D- dimer is elevated at 990,CTA was repeated and again reported as limited, but negative for central PE. There is infiltrate/atelectasis at the right base. The patient was started on Ceftriaxone/Azithromycin for PNA, and US of lower extremity ruled out. Serial cardiac enzymes negative, ACS ruled out, EKG: SR. Pt was evaluated by sx and pulmonary during the hospital stay,pt condition improved, will continue on Ceftin and Zithromax to complete the course.Encouraged to use incentive spirometer and out pt f/u up Dr. Bone on Friday as scheduled. Minutes to complete discharge: 35 Discharge Summary Reason For Visit: SOB Current Active Problems Atelectasis (Acute) Chest pain (Acute) Pneumonia (Acute) SOB (shortness of breath) (Acute) Condition: Good - Instructions Referrals: Mina Valiente [Primary Care Provider] - Jorge Bone MD [Staff Physician] - (on Friday as scheduled ) Disposition: HOME - Home Medications Comprehensive Discharge Medication List: Ambulatory Orders Docusate Sodium [Colace] 100 mg PO DAILY 04/02/18 Oxycodone HCl/Acetaminophen [Percocet 5-325 mg Tablet] 1 - 2 tab PO Q4H Rivaroxaban [Xarelto -] 10 mg PO DAILY 04/02/18 Azithromycin [Zithromax -] 250 mg PO DAILY #4 tab 04/04/18 Cefuroxime Axetil [Ceftin -] 500 mg PO Q12H #12 tablet 04/04/18 Ibuprofen [Motrin -] 600 mg PO TID PRN #21 tablet 04/04/18 Polyethylene Glycol 3350 [Miralax 119 gm Btl -] 17 gm PO BID bottle 04/04/18 This patient is new to me today: Yes Date on this admission: 04/05/18 Emergency Visit: No Critical Care patient: No - Discharge Referral Referred to [facility] No
== END 2018-04-04 11:20 | disposition home or self-care (01) ==
LOC: FER 11:27 → FM/S 14:11
PROVIDERS: ADMIT Internal Medicine; ATTEND Registered Nurse Emergency
PROC: 3E03329 Introduction of Other Anti-infective into Peripheral Vein, Percutaneous Approach (ICD-10-PCS; principal; 2018-04-02)
PROC: 3E033NZ Introduction of Analgesics, Hypnotics, Sedatives into Peripheral Vein, Percutaneous Approach (ICD-10-PCS; 2018-04-02)
PROC: 3E0337Z Introduction of Electrolytic and Water Balance Substance into Peripheral Vein, Percutaneous Approach (ICD-10-PCS; 2018-04-02)
PROC: 3E033GC Introduction of Other Therapeutic Substance into Peripheral Vein, Percutaneous Approach (ICD-10-PCS; 2018-04-02)
DX: J18.9 Pneumonia, unspecified organism (principal); J98.11 Atelectasis; R07.89 Other chest pain; R06.02 Shortness of breath; Z98.890 Other specified postprocedural states; Z79.01 Long term (current) use of anticoagulants
CPT/HCPCS: 36415; 71275-TC; 80048; 80053; 81003; 82550; 83605; 83735; 84100; 84484; 85025; 85379; 85610; 85730; 87040; 87086; 93005; 93970-TC; 99284-25; G0378; J7030

== ENCOUNTER 2018-04-13 15:48 | Emergency (ER) | payer BC ==
[2018-04-13 15:55] VITALS: BP 105/55; PULSE 98; TEMP 97.8; BMI 30.8
--- NOTE | 2018-04-13 17:16 | PDOC ---
History of Present Illness - General Stated Complaint: "SUTURES ON LEFT DRAIN CAME OUT" Time Seen by Provider: 04/13/18 16:44 Past History - Past Medical History Allergies/Adverse Reactions: Allergies Allergy/AdvReac Type Severity Reaction Status Date / Time No Known Allergies Allergy Verified 04/13/18 15:49 Home Medications: Ambulatory Orders Docusate Sodium [Colace] 100 mg PO DAILY 04/02/18 Oxycodone HCl/Acetaminophen [Percocet 5-325 mg Tablet] 1 - 2 tab PO Q4H Rivaroxaban [Xarelto -] 10 mg PO DAILY 04/02/18 Azithromycin [Zithromax -] 250 mg PO DAILY #4 tab 04/04/18 Cefuroxime Axetil [Ceftin -] 500 mg PO Q12H #12 tablet 04/04/18 Ibuprofen [Motrin -] 600 mg PO TID PRN #21 tablet 04/04/18 Polyethylene Glycol 3350 [Miralax 119 gm Btl -] 17 gm PO BID bottle 04/04/18 Dextroamphetamine/Amphetamine [Adderall Xr 30 mg Capsule] 30 mg PO DAILY Anemia: No Asthma: No Cancer: No Cardiac Disorders: No CVA: No COPD: No CHF: No Dementia: No Diabetes: No GI Disorders: No Disorders: No HTN: No Hypercholesterolemia: No Liver Disease: No Psychiatric Problems: Yes (ADD) Seizures: No Thyroid Disease: No - Surgical History Abdominal Surgery: Yes (ABDOMINOPLASTY, LIPOSUCTION) Appendectomy: No Cardiac Surgery: No Cholecystectomy: No Lung Surgery: No Neurologic Surgery: No Orthopedic Surgery: No - Suicide/Smoking/Psychosocial Hx Smoking History: Never smoked Have you smoked in the past 12 months: No If you are a former smoker, when did you quit?: 2016 Information on smoking cessation initiated: No Hx Alcohol Use: No Drug/Substance Use Hx: No Substance Use Type: Alcohol, Marijuana *Physical Exam - Vital Signs Last Vital Signs Temp Pulse Resp BP Pulse Ox 97.8 F 98 H 18 105/55 L 100 04/13/18 15:48 04/13/18 15:48 04/13/18 15:48 04/13/18 15:48 04/13/18 15:48 Moderate Sedation - Procedure Monitoring Vital Signs: Procedure Monitoring Vital Signs Temperature 97.8 F 04/13/18 15:48 Pulse Rate 98 H 04/13/18 15:48 Respiratory Rate 18 04/13/18 15:48 Blood Pressure 105/55 L 04/13/18 15:48 O2 Sat by Pulse Oximetry (%) 100 04/13/18 15:48 *DC/Admit/Observation/Transfer Diagnosis at time of Disposition: Seamus benavidez drain site pain, Post-operative complication, Broken suture - Discharge Dispostion Disposition: HOME Condition at time of disposition: Stable - Referrals - Patient Instructions Printed Discharge Instructions: DI for Seamus-Benavidez Drains Additional Instructions: Follow up with Dr. Major tomorrow as scheduled. Return to the emergency department if you have any new, worsening, or concerning symptoms - Post Discharge Activity - Attestations Physician Attestion: 04/13/18 18:15 I, Dr. Calvin Benson MD, attest that this document has been prepared under my direction and personally reviewed by me in its entirety. I further attest, that it accurately reflects all work, treatment, procedures and medical decision -making performed by me.
== END 2018-04-13 18:10 | disposition home or self-care (01) ==
LOC: FER 15:48
DX: Z48.01 Encounter for change or removal of surgical wound dressing (principal)
CPT/HCPCS: 99283-25